=== PATIENT | female | born 1995 | race African-American/Black ===

== ENCOUNTER 2021-09-13 20:28 | Emergency (ER) | payer MEDICAID, OTHER ==
[~2021-09-13] VITALS: Ht 165.1 cm; Wt 62.0 kg
[2021-09-13] MEDS ORDERED: ONDANSETRON HCL 4MG/2ML INJ IV ONE (21:45)
[2021-09-13] MEDS ORDERED: EPINEPHRINE 1:1000 1 MG/ML AMP IM ONE (21:45)
[2021-09-13] MEDS ORDERED: DIPHENHYDRAMINE 50MG/ML VIAL IV ONE (21:45)
[2021-09-13] MEDS ORDERED: SODIUM CHLORIDE 0.9% 1,000 ML IV SCH (21:45)
[2021-09-13] MEDS ORDERED: METHYLPREDNISOLONE SOD SUCC 125 MG/2 ML VIAL IV ONE (21:45)
[2021-09-13] MEDS ORDERED: FAMOTIDINE 20MG/2ML VIAL IV ONE (21:45)
[2021-09-13] MEDS ORDERED: KETOROLAC 30MG/ML VIAL IV ONE (22:15)
[2021-09-13] MEDS ORDERED: B50 MT (23:44)
[2021-09-13] MEDS ORDERED: TOPUD PO (23:45)
[2021-09-13] MEDS ORDERED: IBUP-2028 MT (23:45)
[2021-09-13] MEDS ORDERED: FAMO-135 MT (23:45)
[2021-09-14 00:17] VITALS: BP 114/68
[2021-09-14] MEDS ORDERED: IBUP-2028 MT (11:22)
[2021-09-14] MEDS ORDERED: TOPUD PO (11:22)
[2021-09-14] MEDS ORDERED: B50 MT (11:22)
[2021-09-14] MEDS ORDERED: FAMO-135 MT (11:22)
== END 2021-09-14 00:22 | disposition home or self-care (01) ==
LOC: ER 20:28
DX: T78.40XA Allergy, unspecified, initial encounter (principal); J45.909 Unspecified asthma, uncomplicated; Z88.1 Allergy status to other antibiotic agents; X58.XXXA Exposure to other specified factors, initial encounter
CPT/HCPCS: 96361; 96374; 96375; 99284; J1200; J1885; J2405; J2930; J3490

== ENCOUNTER 2021-09-27 22:42 | Emergency (ER) | payer MEDICAID ==
[~2021-09-27] VITALS: Ht 172.7 cm; Wt 55.0 kg
[~2021-09-27 22:42] MED LIST: B50 MT; FAMO-135 MT; IBUP-2028 MT; TOPUD PO
[2021-09-27] MEDS ORDERED: KETOROLAC 60MG/2ML VIAL IM ONE (23:00)
[2021-09-28] MEDS ORDERED: ACETAMINOPHEN 325MG TABLET PO ONE (03:00)
[2021-09-28] MEDS ORDERED: CYCL10TA7 MT (03:41)
[2021-09-28] MEDS ORDERED: IBUP-2029 MT (03:41)
[2021-09-28 03:58] VITALS: BP 114/72
[2021-09-28] MEDS ORDERED: CYCLOBENZAPRINE 10MG TABLET PO ONE (04:45)
== END 2021-09-28 05:27 | disposition home or self-care (01) ==
LOC: ER 22:42
DX: S10.83XA Contusion of other specified part of neck, initial encounter (principal); S30.0XXA Contusion of lower back and pelvis, initial encounter; F41.9 Anxiety disorder, unspecified; V49.49XA Driver injured in collision with other motor vehicles in traffic accident, initial encounter; Y93.89 Activity, other specified; Y92.89 Other specified places as the place of occurrence of the external cause; Y99.8 Other external cause status; J45.909 Unspecified asthma, uncomplicated; Z79.899 Other long term (current) drug therapy
CPT/HCPCS: 72125; 72131; 81025; 96372; 99284; J1885

== ENCOUNTER 2022-04-21 07:36 | Emergency (ER) | payer MEDICAID, OTHER ==
[~2022-04-21] VITALS: Ht 170.2 cm; Wt 61.0 kg
[~2022-04-21 07:36] MED LIST changes: +CYCL10TA21 MT; +IBUP-2029 MT
[2022-04-21] MEDS ORDERED: ACETAMINOPHEN 325MG TABLET PO ONE (08:15)
[2022-04-21 08:54] LABS: BASOPHILS % 0.2 % (0.0-2.0); EOSINOPHILS % 0.8 % (0.0-5.0); HEMATOCRIT. 43.5 % (36.0-48.0); HEMOGLOBIN. 14.6 g/dL (12.0-16.0); LYMPHOCYTES % 28.2 % (20.0-50.0); MEAN CORPUSCULAR HEMOGLOBIN 33.4 pg (28.0-32.0); MEAN CORPUSCULAR VOLUME 99.4 fL (81.0-99.0); MEAN PLATELET VOLUME 8.4 fl (7.4-10.4); MONOCYTES % 5.8 % (2.0-8.0); PLATELET 255 x1000/uL (130-400); RED BLOOD CELL COUNT 4.37 mill/uL (4.2-5.4); RED CELL DISTRIBUTION WIDTH 13.5 % (11.6-14.6)
[2022-04-21 09:02] LABS: CHLORIDE 108 mEq/L (98-107)
[2022-04-21 09:04] LABS: *AMPHETAMINES SCREEN URINE NEGATIVE (NEGATIVE); *BARBITURATES SCREEN URINE NEGATIVE (NEGATIVE); *BENZODIAZEPINES SCREEN URINE NEGATIVE (NEGATIVE); *COCAINE SCREEN URINE NEGATIVE (NEGATIVE); METHADONE URINE SCREEN NEGATIVE (NEGATIVE); OPIATES URINE SCREEN NEGATIVE (NEGATIVE); PHENCYCLIDINE URINE SCREEN NEGATIVE (NEGATIVE)
[2022-04-21 09:06] LABS: CANNABINOID URINE SCREEN PRESUMTIVE POSITIVE (NEGATIVE)
[2022-04-21 09:08] LABS: HCG SCREEN NEGATIVE
[2022-04-21 09:13] LABS: ETHANOL BLOOD < 10 mg/dL
[2022-04-21] MEDS ORDERED: KETOROLAC 60MG/2ML VIAL IM ONE (09:30)
[2022-04-21 10:00] VITALS: BP 107/66
== END 2022-04-21 12:26 | disposition home or self-care (01) ==
LOC: ER 07:56
DX: R07.89 Other chest pain (principal); F12.10 Cannabis abuse, uncomplicated; F17.290 Nicotine dependence, other tobacco product, uncomplicated; J45.909 Unspecified asthma, uncomplicated; Z88.1 Allergy status to other antibiotic agents
CPT/HCPCS: 36415; 71045; 80053; 80305; 80320; 83880; 84484; 84703; 85025; 93005; 96372; 99285; 99406; J1885; G0480

== ENCOUNTER 2022-05-03 09:13 | Emergency (ER) | payer MEDICAID ==
[~2022-05-03] VITALS: Ht 172.7 cm; Wt 65.0 kg
[2022-05-03] MEDS ORDERED: IPRATROPIUM/ALBUTEROL 0.5-3(2.5)MG/3ML NEB HHN SCH (09:45)
[2022-05-03] MEDS ORDERED: DEXAMETHASONE 4MG TABLET PO ONE (09:45)
[2022-05-03 09:50] VITALS: BP 103/69
[2022-05-03] MEDS ORDERED: IPRATROPIUM/ALBUTEROL 0.5-3(2.5)MG/3ML NEB HHN ONE (11:00)
[2022-05-03] MEDS ORDERED: MAGNESIUM 1 G PREMIX 100 ML IV ONE (11:00)
[2022-05-03 12:27] LABS: CHLORIDE 112 mEq/L (98-107)
[2022-05-03 12:29] LABS: BASOPHILS % 0.8 % (0.0-2.0); EOSINOPHILS % 1.6 % (0.0-5.0); HEMATOCRIT. 41.3 % (36.0-48.0); HEMOGLOBIN. 14.2 g/dL (12.0-16.0); LYMPHOCYTES % 32.9 % (20.0-50.0); MEAN CORPUSCULAR HEMOGLOBIN 33.9 pg (28.0-32.0); MEAN CORPUSCULAR VOLUME 98.4 fL (81.0-99.0); MEAN PLATELET VOLUME 8.9 fl (7.4-10.4); MONOCYTES % 6.1 % (2.0-8.0); NEUTROPHILS % 58.6 % (40.0-76.0); PLATELET 272 x1000/uL (130-400); RED CELL DISTRIBUTION WIDTH 13.5 % (11.6-14.6)
[2022-05-03 12:31] LABS: UCG SCREEN NEGATIVE
[2022-05-03] MEDS ORDERED: KETOROLAC 15MG/ML VIAL IV ONE (13:15)
== END 2022-05-03 14:25 | disposition left against medical advice (07) ==
LOC: ER 09:20
DX: R06.02 Shortness of breath (principal); R06.2 Wheezing; R09.81 Nasal congestion; F41.9 Anxiety disorder, unspecified; F12.10 Cannabis abuse, uncomplicated; Z79.899 Other long term (current) drug therapy
CPT/HCPCS: 36415; 71045; 80053; 81025; 83735; 85025; 94640; 96365; 96366; 96375; 99284; J1885; J3475; J8540; Z7610

== ENCOUNTER 2022-11-03 10:59 | Emergency (ER) | payer MEDICAID, OTHER ==
[~2022-11-03] VITALS: Ht 170.2 cm; Wt 74.0 kg
[2022-11-03 11:07] VITALS: BP 119/71
[2022-11-03] MEDS ORDERED: ACETAMINOPHEN 325MG TABLET PO ONE (12:15)
[2022-11-03] MEDS ORDERED: ALBU6.7H3 INH (13:18)
[2022-11-03] MEDS ORDERED: DEXAMETHASONE 4MG TABLET PO ONE (13:30)
== END 2022-11-03 13:57 | disposition home or self-care (01) ==
LOC: ER 10:59
DX: J06.9 Acute upper respiratory infection, unspecified (principal); F12.10 Cannabis abuse, uncomplicated; J45.909 Unspecified asthma, uncomplicated; Z20.822 Contact with and (suspected) exposure to COVID-19; Z88.1 Allergy status to other antibiotic agents
CPT/HCPCS: 87426; 99283; C9803; J8540

== ENCOUNTER 2023-07-04 13:14 | Emergency (ER) | payer MEDICAID ==
[~2023-07-04] VITALS: Ht 170.2 cm; Wt 72.0 kg
[~2023-07-04 13:14] MED LIST changes: +ALBU6.7H3 INH
[2023-07-04 13:21] VITALS: O2SAT 100
[2023-07-04] MEDS ORDERED: KETOROLAC 15MG/ML VIAL IV ONE (14:30)
[2023-07-04] MEDS ORDERED: ACETAMINOPHEN 325MG TABLET PO ONE (14:30)
[2023-07-04] MEDS ORDERED: METOCLOPRAMIDE HCL 10MG/2ML VIAL IV ONE (14:30)
[2023-07-04 14:36] LABS: BASOPHILS % 0.4 % (0.0-2.0); EOSINOPHILS % 0.1 % (0.0-5.0); HEMATOCRIT. 45.1 % (36.0-48.0); HEMOGLOBIN. 15.4 g/dL (12.0-16.0); LYMPHOCYTES % 23.3 % (20.0-50.0); MEAN CORPUSCULAR HEMOGLOBIN 33.3 pg (28.0-32.0); MEAN CORPUSCULAR HGB CONC 34.1 g/dL (31.0-37.0); MEAN CORPUSCULAR VOLUME 97.8 fL (81.0-99.0); MEAN PLATELET VOLUME 7.8 fl (7.4-10.4); MONOCYTES % 4.4 % (2.0-8.0); NEUTROPHILS % 71.8 % (40.0-76.0); PLATELET 272 x1000/uL (130-400); RED BLOOD CELL COUNT 4.61 mill/uL (4.2-5.4); RED CELL DISTRIBUTION WIDTH 13.2 % (11.6-14.6); WHITE BLOOD COUNT 8.9 x1000/uL (4.5-11.0)
[2023-07-04 14:39] LABS: INR 1.1; PROTHROMBIN TIME 11.5 sec (9.6-11.0)
[2023-07-04] MEDS ORDERED: LACTATED RINGERS 1,000 ML IV SCH (15:15)
[2023-07-04 15:38] LABS: CLARITY URINE CLEAR (CLEAR); COLOR URINE YELLOW (YELLOW); GLUCOSE URINE NEGATIVE (NEGATIVE); KETONES URINE 3+ (NEGATIVE); LEUKOCYTE ESTERASE URINE NEGATIVE (NEGATIVE); NITRITE URINE NEGATIVE (NEGATIVE); OCCULT BLOOD URINE NEGATIVE (NEGATIVE); PROTEIN URINE NEGATIVE (NEGATIVE); SPECIFIC GRAVITY URINE 1.073 (1.005-1.030); UROBILINOGEN URINE 0.2 E.U./dL (0.2-1.0)
[2023-07-04 15:51] LABS: ALANINE AMINOTRANSFERASE 14 IU/L (10-49); ALBUMIN 4.2 g/dL (3.2-4.8); ASPARTATE AMINOTRANSFERASE 25 IU/L (<34); BILIRUBIN TOTAL 1.2 mg/dL (0.1-1.0); CALCIUM 9.4 mg/dL (8.7-10.4); CARBON DIOXIDE 19 mEq/L (21-32); CHLORIDE 103 mEq/L (98-107); CREATININE 0.9 mg/dL (0.6-1.0); GLUCOSE 77 mg/dL (70-105); POTASSIUM 3.8 mEq/L (3.5-5.1); PROTEIN TOTAL 6.8 g/dL (6.0-8.3); SODIUM 134 mEq/L (136-145); UREA NITROGEN BLOOD 6 mg/dL (9-23)
[2023-07-04 15:53] LABS: TROPONIN I HIGH SENSITIVITY < 4 ng/L (3.0-34)
[2023-07-04 16:05] LABS: HCG SCREEN NEGATIVE
[2023-07-04 18:00] VITALS: BP 159/66; PULSE 66; RESP 14; TEMP 98.7
[2023-07-04] MEDS ORDERED: IOHEXOL-350 100 ML BOTTLE ONE (22:53)
== END 2023-07-04 18:09 | disposition home or self-care (01) ==
LOC: ER 13:14
DX: R51.9 Headache, unspecified (principal); R11.2 Nausea with vomiting, unspecified; R53.1 Weakness; R20.0 Anesthesia of skin; F41.9 Anxiety disorder, unspecified; J45.909 Unspecified asthma, uncomplicated; F12.90 Cannabis use, unspecified, uncomplicated; Z88.8 Allergy status to other drugs, medicaments and biological substances
CPT/HCPCS: 80053; 81003; 82962; 84703; 85025; 85610; 84484; 36415; 71045; 70496; 70498; 70450; 93005; 96361; 96374; 96375; 99291; Q9967; J1885; J2765; Z7610 ×4

== ENCOUNTER 2023-09-24 13:39 | Emergency (ER) | payer MEDICAID ==
[~2023-09-24] VITALS: Ht 170.2 cm; Wt 80.0 kg
[2023-09-24 13:50] VITALS: BP 127/82; PULSE 80; TEMP 98.9; O2SAT 99
[2023-09-24 14:23] LABS: CLARITY URINE CLOUDY (CLEAR); COLOR URINE YELLOW (YELLOW); GLUCOSE URINE NEGATIVE (NEGATIVE); KETONES URINE TRACE (NEGATIVE); LEUKOCYTE ESTERASE URINE 1+ (NEGATIVE); NITRITE URINE NEGATIVE (NEGATIVE); OCCULT BLOOD URINE NEGATIVE (NEGATIVE); PH URINE 6.5 (4.5-8.0); PROTEIN URINE TRACE (NEGATIVE); SPECIFIC GRAVITY URINE 1.022 (1.005-1.030)
[2023-09-24 14:34] LABS: CALCIUM OXALATE CRYSTALS URINE 1+ /lpf; SQUAMOUS EPITHELIAL CELL URINE 1+ /lpf (RARE/1+)
[2023-09-24 14:35] LABS: BACTERIA URINE 1+; RBC URINE 0-2 /hpf (0-2); YEAST URINE NONE SEEN
[2023-09-24 15:03] LABS: BASOPHILS % 0.4 % (0.0-2.0); EOSINOPHILS % 0.3 % (0.0-5.0); HEMATOCRIT. 41.8 % (36.0-48.0); HEMOGLOBIN. 14.2 g/dL (12.0-16.0); LYMPHOCYTES % 34.8 % (20.0-50.0); MEAN CORPUSCULAR HEMOGLOBIN 33.1 pg (28.0-32.0); MEAN CORPUSCULAR HGB CONC 33.9 g/dL (31.0-37.0); MEAN CORPUSCULAR VOLUME 97.8 fL (81.0-99.0); MONOCYTES % 7.3 % (2.0-8.0); NEUTROPHILS % 57.2 % (40.0-76.0); PLATELET 198 x1000/uL (130-400); RED BLOOD CELL COUNT 4.27 mill/uL (4.2-5.4); RED CELL DISTRIBUTION WIDTH 13.3 % (11.6-14.6); WHITE BLOOD COUNT 5.9 x1000/uL (4.5-11.0)
[2023-09-24 15:10] LABS: ALANINE AMINOTRANSFERASE 14 IU/L (10-49); ALBUMIN 4.6 g/dL (3.2-4.8); ASPARTATE AMINOTRANSFERASE 24 IU/L (<34); BILIRUBIN TOTAL 0.5 mg/dL (0.1-1.0); CALCIUM 9.3 mg/dL (8.7-10.4); CARBON DIOXIDE 26 mEq/L (21-32); CHLORIDE 107 mEq/L (98-107); CREATININE 0.9 mg/dL (0.6-1.0); GLUCOSE 107 mg/dL (70-105); POTASSIUM 3.8 mEq/L (3.5-5.1); PROTEIN TOTAL 7.6 g/dL (6.0-8.3); SODIUM 141 mEq/L (136-145); UREA NITROGEN BLOOD 6 mg/dL (9-23)
[2023-09-24] MEDS ORDERED: ONDA4TAB50 MT (16:33)
[2023-09-24] MEDS ORDERED: NITR-87 MT (16:33)
== END 2023-09-24 16:51 | disposition home or self-care (01) ==
LOC: ER 13:39
DX: N30.00 Acute cystitis without hematuria (principal); J45.909 Unspecified asthma, uncomplicated; Z88.1 Allergy status to other antibiotic agents; Z79.899 Other long term (current) drug therapy; Z98.890 Other specified postprocedural states
CPT/HCPCS: 36415; 80053; 81003; 81025; 85025; 99283

== ENCOUNTER 2024-07-02 20:51 | Emergency (ER) | payer MEDICAID ==
[~2024-07-02] VITALS: Ht 167.6 cm; Wt 68.0 kg
[~2024-07-02 20:51] MED LIST changes: +NITR-87 MT; +ONDA4TAB50 MT
[2024-07-02 20:55] VITALS: O2SAT 99
[2024-07-02 21:30] VITALS: BP 113/57; PULSE 85; RESP 18; TEMP 36.78072; O2SAT 97
[2024-07-02 21:58] LABS: BASOPHILS % 0.2 % (0.0-2.0); DIFFERENTIAL COMMENT 0; EOSINOPHILS % 0.4 % (0.0-5.0); HEMOGLOBIN. 13.4 g/dL (12.0-16.0); LYMPHOCYTES % 19.7 % (20.0-50.0); MEAN CORPUSCULAR HEMOGLOBIN 33.2 pg (28.0-32.0); MEAN CORPUSCULAR HGB CONC 32.6 g/dL (31.0-37.0); MEAN CORPUSCULAR VOLUME 101.9 fL (81.0-99.0); MEAN PLATELET VOLUME 8.1 fl (7.4-10.4); MONOCYTES % 2.7 % (2.0-8.0); PLATELET 217 x1000/uL (130-400); RED BLOOD CELL COUNT 4.03 mill/uL (4.2-5.4); RED CELL DISTRIBUTION WIDTH 13.6 % (11.6-14.6); WHITE BLOOD COUNT 9.7 x1000/uL (4.5-11.0)
[2024-07-02 21:59] LABS: CHLORIDE 111 mEq/L (98-107); POTASSIUM 3.3 mEq/L (3.5-5.1); SODIUM 141 mEq/L (136-145)
[2024-07-02 22:00] LABS: CALCIUM 9.1 mg/dL (8.7-10.4); CARBON DIOXIDE 23 mEq/L (21-32)
[2024-07-02 22:05] LABS: GLUCOSE 110 mg/dL (70-105); UREA NITROGEN BLOOD 8 mg/dL (9-23)
[2024-07-02] MEDS: ACETAMINOPHEN 325MG TABLET PO NR (22:05)
[2024-07-02 22:06] LABS: ALANINE AMINOTRANSFERASE 9 IU/L (10-49)
[2024-07-02 22:07] LABS: ALBUMIN 4.1 g/dL (3.2-4.8); ASPARTATE AMINOTRANSFERASE 20 IU/L (<34); BILIRUBIN DIRECT 0.2 mg/dL (<=3.0); BILIRUBIN TOTAL 0.7 mg/dL (0.1-1.0); PROTEIN TOTAL 6.8 g/dL (6.0-8.3)
[2024-07-02 22:19] LABS: TROPONIN I HIGH SENSITIVITY < 4 ng/L (3.0-34)
[2024-07-02 22:45] LABS: CLARITY URINE CLEAR (CLEAR); COLOR URINE YELLOW (YELLOW); GLUCOSE URINE NEGATIVE (NEGATIVE); KETONES URINE NEGATIVE (NEGATIVE); LEUKOCYTE ESTERASE URINE NEGATIVE (NEGATIVE); NITRITE URINE NEGATIVE (NEGATIVE); OCCULT BLOOD URINE NEGATIVE (NEGATIVE); PROTEIN URINE NEGATIVE (NEGATIVE); SPECIFIC GRAVITY URINE 1.001 (1.005-1.030); UROBILINOGEN URINE 0.2 E.U./dL (0.2-1.0)
== END 2024-07-02 23:40 | disposition left against medical advice (07) ==
LOC: ER 20:51
DX: R07.89 Other chest pain (principal); R06.02 Shortness of breath; J45.909 Unspecified asthma, uncomplicated; F41.9 Anxiety disorder, unspecified; Z79.899 Other long term (current) drug therapy; Z88.1 Allergy status to other antibiotic agents; Z86.711 Personal history of pulmonary embolism
CPT/HCPCS: 36415; 71045; 80048; 80076; 81003; 83880; 84484; 85025; 93005; 99285